=== PATIENT | female | born 1955 | race Hispanic/Latino ===

== ENCOUNTER → 2024-06-26 | Outpatient (CLI) | payer MEDICARE ==
--- NOTE | 2024-06-26 18:56 | HMCSR ---
APPROVED REPORT EXAM: Two-dimensional and M-mode echocardiogram with Doppler and color Doppler. INDICATION ICD: T70.29XD Other effects of high altitude, subsequent encounter 2D Dimensions RVDd3.2 cmLVEF(%)72.4 (>50%)LVED Vol(simp.)90.0 mL IVSd0.9 (0.7-1.1cm)FS(%)41 %LVES Vol(simp.)32.0 mL LVDd4.6 (3.8-5.6cm)Ao Root(2D)3.3 (2.0-3.7cm)LVEF(%, simp.)65 % PWd0.9 (0.7-1.1cm)LVOT diam1.9 (1.8-2.4cm)LA ESV INDEX (BP)33.22 mL/m2 LVDs2.7 (2.5-4.0cm)IVC diam1.6 cm Aortic Valve AoV Vmax1.4 m/Brando Peak GR8.1 mmHgLVOT Vmax1.1 m/s AoV VTI0.4 mAo Mean GR4.5 mmHgLVOT VTI0.28 m EDUARD (VMAX)2.3 cm2AVA (VTI) 2.3 cm2 Mitral Valve MV E Vmax93.5 cm/sDECEL Jnth518 ms MV A Vmax65.5 cm/sP 1/2 T55 ms E/A ratio1.4MVA (PHT)4.0 cm2 MR Max PG119 mmHg TDI E/E' Fynxke69.9E/E' Lateral9.6 Pulmonary Valve PV Vmax1.0 m/sPV VTI0.21 mPV Mean GR2 mmHg PV Peak GR3.6 mmHgPI End Malka. Peng 1.2 cm/s Tricuspid Valve TR Vmax2.5 m/sRAP (EST) 3 ixEuKAQE19.5 mmHg TR Peak GR24.5 mmHg Left Ventricle The left ventricle structure and function is normal. There is normal LV segmental wall motion. There is normal left ventricular wall thickness. LVEF is 65%. Left ventricular filling pattern is normal fo r age. Right Ventricle The right ventricle is normal size. The right ventricular systolic function is normal. Atria The left atrium size is normal. Atrial septal aneurysm is present. The right atrium size is normal. Aortic Valve Aortic valve is trileaflet. Aortic valve leaflets are sclerotic but open well. Trace aortic regurgita tion. There is no aortic valvular stenosis. Mitral Valve Mitral valve leaflets are mildly sclerotic but open well. Mitral regurgitation is mild. There is no m itral valve stenosis. Tricuspid Valve The tricuspid valve leaflets appear normal. There is trace to mild tricuspid regurgitation. Pulmonic Valve Pulmonic valve is not well visualized. There is trace pulmonic valvular regurgitation. Great Vessels The aortic root is normal in size. The IVC is normal in size and collapses >50% with inspiration. Pericardium No pericardial effusion. Conclusion The left atrium size is normal. There is normal left ventricular wall thickness. There is normal LV segmental wall motion. LVEF is 65%. Left ventricular filling pattern is normal for age. Atrial septal aneurysm is present, without PFO by color Doppler. Aortic valve is trileaflet. Aortic valve leaflets are sclerotic but open well. Mitral regurgitation is mild. No pericardial effusion.
== END | disposition home or self-care (01) ==
LOC: SHCH 13:46
PROVIDERS: ATTEND Internal Medicine Cardiovascular Disease
DX: T70 Effects of air pressure and water pressure (principal); I08.3 Combined rheumatic disorders of mitral, aortic and tricuspid valves; I25.3 Aneurysm of heart; X58.XXXD Exposure to other specified factors, subsequent encounter
CPT/HCPCS: 93306